=== PATIENT | female | born 1990 | race Caucasian/White ===

== ENCOUNTER 2017-07-24 19:18 | Emergency (ER) | payer BC, OTHER ==
[2017-07-24] MEDS ORDERED: Ondansetron ODT 4 MG TAB ONE (19:25)
[2017-07-24] MEDS ORDERED: Ondansetron HCl/PF 4 MG/2 ML Vial ONE ×2 (19:36→22:06)
[2017-07-24 19:52] LABS: #Eosinphils 0.1 thou/uL (0.0-0.7); #Lymphocytes 0.7 thou/uL (1.20-3.40); #Monocytes 0.5 thou/uL (0.11-0.59); #Neutrophils 6.6 thou/uL (1.40-6.50); %Basophils 0.6 % (0.0-1.0); %Eosinophils 0.9 % (0.0-10.0); %Lymphocytes 8.6 % (21.0-51.0); %Monocytes 6.2 % (0.0-10.0); Hematocrit 40.2 % (36.0-47.0); Mean Platelet Volume 7.6 fL (7.4-10.4); Red Blood Cell (RBC) Count 4.57 mill/uL (4.20-5.40); White Blood Cell (WBC) Count 7.9 thou/uL (4.8-10.8)
[2017-07-24 20:04] LABS: ALT (SGPT) 11 U/L (8-55); AST (SGOT) 15 U/L (5-34); Alkaline Phosphatase 63 U/L (40-150); Anion Gap 16 mmol/L (10-20); BUN (Urea Nitrogen) 9 mg/dL (7.0-18.7); Bilirubin, Total 0.7 mg/dL (0.2-1.2); Calc. Creatinine Clearance 0 mL/min (70-130); Calcium 9.9 mg/dL (7.8-10.44); Carbon Dioxide 24 mmol/L (22-29); Chloride 102 mmol/L (98-107); Estimated GFR-MDRD Greater than 90; Globulin 3.5 g/dL (2.4-3.5); Protein, Total 8.3 g/dL (6.0-8.3)
[2017-07-24] MEDS ORDERED: Promethazine HCl 25 MG/ML VIAL ONE (20:38)
[2017-07-24 21:21] LABS: Bilirubin Negative (Negative); Blood, Urine Negative (Negative); Glucose, Urine (Dipstick) Negative (Negative); Ketone, Urine > or equal to 80 mg/dL (Negative); Nitrite Negative (Negative); Protein, Urine (Dipstick) Negative (Neg-Trace); Urobilinogen 0.2 mg/dL (0.2-1.0)
== END 2017-07-24 22:22 | disposition home or self-care (01) ==
LOC: SCSER 19:18
DX: O21.9 Vomiting of pregnancy, unspecified (principal); Z3A.08 8 weeks gestation of pregnancy
CPT/HCPCS: 80053; 81003; 84702; 84703; 85025; 96361; 96365; 96375; 96376; J2405; J2550; Q0162

== ENCOUNTER 2017-10-17 19:43 | Day surgery (SDC) | payer OTHER ==
[2017-10-17 20:37] VITALS: BMI 24.7
[2017-10-17 21:03] LABS: Bilirubin Negative (Negative); Blood, Urine Negative (Negative); Clarity CLEAR (Clear); Glucose, Urine (Dipstick) Negative (Negative); Leukocyte Negative (Negative); Nitrite Negative (Negative); Protein, Urine (Dipstick) Negative (Neg-Trace); Specific Gravity, Urine 1.012 (1.002-1.036); Urobilinogen 0.2 mg/dL (0.2-1.0); pH, Urine 7.5 (5.0-9.0)
[2017-10-17 21:04] LABS: Bacteria/HPF None Seen HPF (None Seen); Hyaline Casts/LPF 0-3 HYALINE CAST LPF (0-3 Hyaline); RBC/HPF 0-3 HPF (0-3); Squamous Epithelial None Seen HPF (0-3); WBC/HPF None Seen HPF (0-3)
--- NOTE | 2017-10-17 21:29 | PDOC.LDHP ---
Labor and Delivery H&P Chief complaint: other (cramping) HPI: 27 y/o at 20w1d, patient of AmrikJosue Campoverde, presents with contractions since 1pm. She reports feeling tightening every few minutes all day. Started drinking water after they didn't go away. Has not taken any medications. Denies VB, LOF, or decreased FM. No UTI sx. Slightly increased discharge. ROS neg for HEENT, CV, pulm, GI, , neuro, psych, skin, musculoskeletal, or constitutional symptoms other than mentioned above. OB History Details: 2 term SVDs, first with elevated BPs Current complications: none Past Medical History: None Current medications: pre- vitamins Previous surgical history: none Allergies/Adverse Reactions: Allergies Allergy/AdvReac Type Severity Reaction Status Date / Time gluten Allergy Mild Headache Verified 10/17/17 20:32 Social history: none - Physical Exam Vital signs reviewed and normal: yes General: NAD, resting Lungs: nonlabored breathing Abdomen: gravid Extremeties: no edema FHT: category 1 (150s) [place] contractions every: none visible - Vaginal Exam cm dilated: 0 (Firm, posterior) Effacement: 0% Station: -3 - OB Labs Additional Labs: Laboratory Tests 10/17/17 20:15 Urine Color YELLOW Urine Clarity CLEAR Urine pH 7.5 Ur Specific [place] 1.012 Urine Protein Negative Urine Glucose (UA) Negative Urine Ketones Negative Urine Blood Negative Urine Nitrite Negative Urine Bilirubin Negative Urine Urobilinogen 0.2 Ur Leukocyte Esterase Negative Urine RBC 0-3 Urine WBC None Seen Ur Squamous Epith Cells None Seen Urine Bacteria None Seen Hyaline Casts 0-3 HYALINE CAST VP3 neg x3 - Assessment 27 y/o at 20w1d with cramping but no e/o PTL. VP3 neg x 3. UA wnl. status reassuring with +FHTs. - Plan -: D/c home with precautions and comfort measures. Follow up with Peg Campoverde if sx persist.
[2017-10-18] MEDS ORDERED: FLU VACC QS2017-18 36 mo. & older 0.5 ML SYRINGE IM ONE (09:00)
== END 2017-10-17 22:09 | disposition home or self-care (01) ==
LOC: L&D/OP 19:43
PROVIDERS: ATTEND Student in an Organized Health Care Education/Training Program
DX: O47.02 False labor before 37 completed weeks of gestation, second trimester (principal); Z91.018 Allergy to other foods; Z79.899 Other long term (current) drug therapy; Z3A.20 20 weeks gestation of pregnancy
CPT/HCPCS: 81001; 87480; 87510; 87660; 99283

== ENCOUNTER 2018-03-04 01:11 | Inpatient (IN) | payer OTHER ==
[2018-03-04 01:53] VITALS: BMI 27.8
[2018-03-04] MEDS ORDERED: NS / Oxytocin 40 units/1000ml 1,000 ML IV PRN (02:09)
[2018-03-04] MEDS ORDERED: Ondansetron HCl/PF 4 MG/2 ML Vial IVP PRN ×2 (02:09→16:23)
[2018-03-04] MEDS ORDERED: Butorphanol Tartrate 1 MG/ML VIAL SLOW IVP PRN ×2 (02:09→14:22)
[2018-03-04] MEDS ORDERED: Methylergonovine 0.2 MG/ML VIAL IM PRN ×2 (02:09→16:23)
[2018-03-04] MEDS ORDERED: Diphenoxylate HCl/Atropine Tablet PO PRN ×2 (02:09)
[2018-03-04] MEDS ORDERED: Lidocaine 1% (PF) 30 ML VIAL SC PRN (02:09)
[2018-03-04] MEDS ORDERED: Carboprost 250 MCG/ML AMP IM PRN (02:09)
[2018-03-04] MEDS ORDERED: Ibuprofen 800 MG TAB PO PRN (02:09)
[2018-03-04] MEDS ORDERED: HYDROcodone/Acetaminophen 5/325 mg Tablet PO PRN ×3 (02:09→16:23)
[2018-03-04] MEDS ORDERED: Promethazine HCl 25 MG/ML VIAL IM PRN (02:09)
[2018-03-04 02:44] LABS: Hemoglobin 12.6 g/dL (12.0-16.0); Mean Corpuscular Hemoglobin 30.5 pg (27.0-31.0); Mean Corpuscular Volume 87.3 fL (78.0-98.0); Mean Platelet Volume 6.9 fL (7.4-10.4); Platelet Count 170 thou/uL (130-400); RBC Distribution Width 12.2 % (11.5-14.5); Red Blood Cell (RBC) Count 4.14 mill/uL (4.20-5.40)
[2018-03-04 03:20] LABS: Hep B Surf Ag Non-Reactive S/CO (NonReactive)
[2018-03-04] MEDS ORDERED: Meperidine HCl/PF 25 MG/ML VIAL ONE (08:58)
[2018-03-04] MEDS ORDERED: Bupivacaine/Epinephrine 0.25% 30 ML VIAL ONE (09:00)
[2018-03-04] MEDS ORDERED: Meperidine HCl/PF 25 MG/ML VIAL IM SCH (09:00)
[2018-03-04] MEDS ORDERED: Promethazine HCl 25 MG/ML VIAL IM SCH (09:00)
[2018-03-04] MEDS ORDERED: Bupivacaine 0.75% 13.4 ML, fentaNYL Citrate/PF 400 MCG in Sodium Chloride 0.9% 78.6 ML EPIDURAL SCH (12:45)
[2018-03-04] MEDS ORDERED: DISCONTINUE ALL PREVIOUS NARCOTICS FS SCH (12:45)
--- NOTE | 2018-03-04 13:02 | PDOC.LDHP ---
Labor and Delivery H&P Chief complaint: contractions HPI: contractions woke the patient up in the middle on the night on 03/04/18. she denies LOF, VB. reports good movement Current gestational age (weeks): 39 Due date: 03/05/18 Dating criteria: last menstrual period (verified with first trimester ultrasound ) Grav: 3 Para: 2 OB History Details: G1 IOL G2 IOL for HTN. G3 current Current complications: none Abnormal US findings: No Past Medical History: anemai Current medications: pre- vitamins Previous surgical history: none (adenoids age 4) Allergies/Adverse Reactions: Allergies Allergy/AdvReac Type Severity Reaction Status Date / Time gluten Allergy Mild Headache Verified 10/17/17 20:32 Social history: none - Physical Exam Vital signs reviewed and normal: yes General: breathing through contractions Heart: RRR Lungs: nonlabored breathing Abdomen: gravid FHT: category 1 [place] contractions every: Q6-7mins - Vaginal Exam cm dilated: 5 Effacement: 100% Station: -1 - OB Labs Blood type: O RH: positive Antibody Screen: negative HIV: negative RPR: negative HEPSAg: negative 1 hour GCT: negative GBS: negative Urine drug screen: not done Rubella: immune Additional Labs: Pap Neg Aug 1208/2017 - Assessment L&D Assessment: term patient in labor (with dysfunctional labor pattern with 5 hrs without cervical dilation.) - Plan Plan: admit to L&D, other (Discussed options with patient regarding discharging home vs. augmentation of labor pattern AROM. R/B discussed with patient of each option. AROM performed - clear fluid.)
[2018-03-04] MEDS ORDERED: NS / Oxytocin 40 units/1000ml 1,000 ML ONE (13:30)
[2018-03-04] MEDS ORDERED: Lidocaine 1% (PF) 30 ML VIAL ONE (13:30)
--- NOTE | 2018-03-04 14:16 | PDOC.OPDEL ---
OB Operative/Delivery Note Delivery Dr/Surgeon: Aquilino Campoverde CNM Pre-Delivery Diagnosis: active labor Procedure/Post Delivery Dx: spontaneous vaginal delivery Weeks gestation: 39 Anesthesia: none - Findings A Sex: male Weight: 7 lb 9 oz - 1 min: 9 - 5 min: 9 - Additional Findings/Plan Placenta delivered: spontaneous Repaired Obstetrical Laceration: 1st degree (reparied with 2.0 vicryl) Estimated blood loss: 200mL Post delivery plan: routine recovery
[2018-03-04] MEDS ORDERED: Butorphanol Tartrate 1 MG/ML VIAL ONE (14:19)
[2018-03-04] MEDS: Lactated Ringer's 1,000 ML IV SCH ×2 (15:27→16:35)
[2018-03-04] MEDS ORDERED: Adacel (T-DAP) 0.5 ML VIAL IM ONE (16:23)
[2018-03-04] MEDS ORDERED: Bisacodyl 10 MG SUPP PR PRN (16:23)
[2018-03-04] MEDS ORDERED: Benzocaine/Menthol 20-0.5% 60 ML CAN TOP PRN (16:23)
[2018-03-04] MEDS ORDERED: Milk Of Magnesia 30 ML UDCUP PO PRN (16:23)
[2018-03-04] MEDS ORDERED: Varicella virus, LIVE 0.5 ML VIAL SC ONE (16:23)
[2018-03-04] MEDS ORDERED: NS / Oxytocin 40 units/1000ml 1,000 ML IV SCH (16:23)
[2018-03-04] MEDS ORDERED: Lanolin Ointment 7 GM TUBE TOP PRN (16:23)
[2018-03-04] MEDS ORDERED: Misoprostol 200 MCG TAB VAG SCH (16:30)
[2018-03-04] MEDS: Ferrous Sulfate 325 MG TAB PO SCH (17:58)
[2018-03-04] MEDS: Ibuprofen 800 MG TAB PO SCH (21:23)
[2018-03-04] MEDS: Docusate Calcium (SURFAK) 240 MG CAP PO SCH (21:23)
[2018-03-05 04:33] LABS: Syphilis Antibody Nonreactive (Nonreactive); Syphilis Antibody Index 0.14 S/CO (<1.00 Non-Reactive)
[2018-03-05] MEDS: HYDROcodone/Acetaminophen 5/325 mg Tablet PO PRN ×2 (05:22→11:19)
[2018-03-05] MEDS: Ibuprofen 800 MG TAB PO SCH ×3 (05:22→22:02)
[2018-03-05 06:03] LABS: Hemoglobin 12.1 g/dL (12.0-16.0); Mean Corpuscular HGB CONC 34.6 g/dL (32.0-36.0); Mean Corpuscular Hemoglobin 30.8 pg (27.0-31.0); Mean Corpuscular Volume 88.9 fL (78.0-98.0); Mean Platelet Volume 7.2 fL (7.4-10.4); Platelet Count 146 thou/uL (130-400); RBC Distribution Width 12.3 % (11.5-14.5); Red Blood Cell (RBC) Count 3.93 mill/uL (4.20-5.40); White Blood Cell (WBC) Count 10.5 thou/uL (4.8-10.8)
[2018-03-05] MEDS: Docusate Calcium (SURFAK) 240 MG CAP PO SCH ×2 (08:02→22:02)
[2018-03-05] MEDS: Prenatal Vitamin 1 TAB PO SCH (08:02)
[2018-03-05] MEDS: Ferrous Sulfate 325 MG TAB PO SCH ×2 (08:03→16:58)
--- NOTE | 2018-03-05 20:00 | PDOC.PP ---
Post Progress Note Post Day #: 1 Subjective: patient is doing well, but struggling with on the left side only PO intake tolerated: yes Flatus: yes Ambulation: yes Vital Signs (12 hours) Temp Pulse Resp BP 03/05/18 12:00 97.6 F 80 16 03/05/18 10:58 97.6 F 80 16 132/80 Weight Weight 162 lb - Physical Examination General: NAD Cardiovascular: no m/r/g Respiratory: clear to auscultation bilaterally Abdominal: lochia (minimal) Fundus firm & at: -1 Extremities: negative homans (B) Skin: CS incision dry & intact Neurological: no gross focal deficits Psychiatric: A&Ox3 Result Diagrams: 03/05/18 05:15 Additional Labs: Post Labs Blood Type O POSITIVE 03/04/18 02:23 Hep Bs Antigen Non-Reactive S/CO (NonReactive) 03/04/18 02:23 (1) (spontaneous vaginal delivery) Code(s): O80 - ENCOUNTER FOR FULL-TERM UNCOMPLICATED DELIVERY Status: Acute - Assessment/Plan routine care discharge tomorrow
[2018-03-06] MEDS: Ibuprofen 800 MG TAB PO SCH (04:07)
[2018-03-06 07:50] VITALS: BP 114/80; TEMP 98.6
[2018-03-06] MEDS: Ferrous Sulfate 325 MG TAB PO SCH (09:08)
[2018-03-06] MEDS: Prenatal Vitamin 1 TAB PO SCH (09:08)
[2018-03-06] MEDS: Docusate Calcium (SURFAK) 240 MG CAP PO SCH (09:08)
== END 2018-03-06 12:00 | disposition home or self-care (01) | DRG 775 ==
LOC: L&D/OP 01:11 → L&D 02:16 → 3SW 16:09
PROVIDERS: ADMIT Obstetrics & Gynecology; ATTEND Obstetrics & Gynecology
PROC: 10E0XZZ Delivery of Products of Conception, External Approach (ICD-10-PCS; principal; 2018-03-06)
PROC: 3E033VJ Introduction of Other Hormone into Peripheral Vein, Percutaneous Approach (ICD-10-PCS; 2018-03-06)
PROC: 0HQ9XZZ Repair Perineum Skin, External Approach (ICD-10-PCS; 2018-03-06)
DX: O16.4 Unspecified maternal hypertension, complicating childbirth (principal); O70.0 First degree perineal laceration during delivery; Z3A.39 39 weeks gestation of pregnancy; Z37.0 Single live birth
CPT/HCPCS: 36415; 85027; 86780; 86850; 86900; 86901; 87340; 99285; J0595; J2001; J2175; J2550; J3010; J7050

== ENCOUNTER 2020-08-27 22:47 | Day surgery (SDC) | payer OTHER ==
[2020-08-27 23:27] VITALS: BMI 32.1
[2020-08-28] MEDS ORDERED: hydrALAZINE 20 MG/ML VIAL SLOW IVP PRN (00:01)
[2020-08-28 00:25] LABS: Amnisure Internal Control QC ACCEPTABLE (ACCEPTABLE); Amnisure Test No Membranes Rupture (No Rupture)
[2020-08-28 01:15] LABS: Bilirubin Negative (Negative); Blood, Urine Negative (Negative); Glucose, Urine (Dipstick) Negative (Negative); Ketone, Urine Trace mg/dL (Negative); Leukocyte Negative (Negative); Nitrite Negative (Negative); Protein, Urine (Dipstick) Negative (Neg-Trace); Specific Gravity, Urine 1.015 (1.005-1.030); Urobilinogen 0.2 mg/dL (Less than 2); pH, Urine 7.5 (5.0-9.0)
[2020-08-28 01:16] LABS: Clarity Clear (Clear)
[2020-08-28 01:21] LABS: Bacteria/HPF None Seen HPF (None Seen); RBC/HPF None Seen HPF (0-3); Squamous Epithelial None Seen HPF (0-3); WBC/HPF None Seen HPF (0-3)
--- NOTE | 2020-08-28 01:25 | PRG ---
DATE OF SERVICE: 08/27/2020 PRIMARY OB: Linda Campoverde, certified nurse applications consultant. CHIEF COMPLAINT: Leakage of fluid. HISTORY OF PRESENT ILLNESS: The patient is a 30-year-old G4, P3 female with an intrauterine at 29 weeks and 6 days, presenting to Labor and Delivery with leakage of fluid since 9 p.m. this evening. The patient reports that she has just noticed that she has not been soaking anything, but reports that her pad just staying wet and she feels an urgency to urinate repeatedly. The patient reports that she has been traveling all day from [facility] as she has recently went for the holidays with her family to visit a sister who just recently had a baby. The patient denies fever, headache, cough, chest pain, shortness of breath, nausea, vomiting, diarrhea, constipation. Denies hip problems, knee problems, muscle weakness. She denies any rash. She denies vaginal bleeding. She reports this urinary urgency is similar in ways to previous when she had ruptured membranes at term. PAST MEDICAL HISTORY: Negative. PAST SURGICAL HISTORY: She has had her tonsils and adenoids removed and LASIK surgery. SOCIAL HISTORY: Denies drug, alcohol, or tobacco use. ALLERGIES: NO KNOWN DRUG ALLERGIES. MEDICATIONS: vitamins. OB LABS: Unavailable at time of dictation. REVIEW OF SYSTEMS: Per HPI. PHYSICAL EXAMINATION: VITAL SIGNS: Blood pressure is 121/80, pulse is 76, respiratory rate of 18, saturating 98% to 99% on room air, temperature 98.4. GENERAL: She appears to be in no acute distress. She is alert, oriented, cooperative, and pleasant to interact with. HEAD: Normocephalic and atraumatic. LUNGS: Clear to auscultation bilaterally. HEART: Has a regular rate and rhythm. ABDOMEN: Gravid, soft, nontender. EXTREMITIES: Nontender, nonedematous. GENITOURINARY: Her vulva is without masses, lesions, or erythema. Perineum does appear glistening wet. On speculum exam, vagina is dry with some white mucousy discharge at the os. She has no pooling present with Valsalva or cough. AmniSure and VP3 are collected. Cervical exam is closed. DIAGNOSTIC DATA: heart tracing shows the fetus with a baseline in the 130s with moderate long-term variability, positive 15 x 15 accelerations, no decelerations. Tocometer showing irritability, but no regular contraction pattern. AmniSure was collected and found to be negative. Urinalysis and VP3 are still pending. ASSESSMENT AND PLAN: The patient is a 30-year-old female, multiparous, with an intrauterine at 29 weeks and 6 days, presenting for leakage of fluid, urinary urgency, and frequency. We have no evidence of rupture of membranes at this time on physical exam and with AmniSure. Urinalysis is pending. VP3 is also pending, which will not be available until the morning. The patient will be discharged home with or without a prescription for UTI depending on the results of the labs. VP3 results will not be available until tomorrow, for which she can call in the morning. The patient's fetus has a reactive NST and category 1 tracing. She will be following up with her primary OB as scheduled. Addendum LAbs sig for BV and nayeli on vp3. Pt called and results relayed. Metronidazole 500mg pobid x7days and otc monistat recommended. Rx electrinically sent Job ID: [id number] MTDD
== END 2020-08-28 01:20 | disposition home or self-care (01) ==
LOC: L&D/OP 22:47
PROVIDERS: ATTEND Advanced Practice Midwife
DX: O98.813 Other maternal infectious and parasitic diseases complicating pregnancy, third trimester (principal); B37.3 Candidiasis of vulva and vagina; O23.593 Infection of other part of genital tract in pregnancy, third trimester; B96.89 Other specified bacterial agents as the cause of diseases classified elsewhere; O99.891 Other specified diseases and conditions complicating pregnancy; R39.15 Urgency of urination; R35.0 Frequency of micturition; Z3A.29 29 weeks gestation of pregnancy; Z91.018 Allergy to other foods
CPT/HCPCS: 81001; 84112; 87480; 87510; 87660; 99285